=== PATIENT | female | born 1995 | race Caucasian/White ===

== ENCOUNTER → 2017-08-27 | Emergency (ER) | payer OTHER ==
[~2017-08-27] MED LIST: HYDROcodone/APAP 5/325MG 1 TAB TABLET ONE; HYDROcodone/APAP 5/325MG 1 TAB TABLET PO ONE
[2017-08-27 13:58] LABS: BASO # 0.1 x10^3/uL (0.0-0.2); BASO % 1 % (0-3); EOS # 0.1 x10^3/uL (0.0-0.7); EOS % 2 % (0-3); HEMATOCRIT 41.4 % (36.0-47.0); HEMOGLOBIN 13.9 g/dL (12.0-15.5); LYMPH # 1.6 x10^3/uL (1.0-4.8); LYMPH % 31 % (24-48); MEAN CORPUSCULAR HEMOGLOBIN 29 pg (25-35); MEAN CORPUSCULAR HGB CONC 34 g/dL (31-37); MEAN CORPUSCULAR VOLUME 88 fL (79-100); MONO # 0.3 x10^3/uL (0.0-1.1); MONO % 7 % (0-9); NEUT # 3.1 x10^3uL (1.8-7.7); NEUT % 60 % (31-73); PLATELET COUNT 246 x10^3/uL (140-400); RED BLOOD COUNT 4.73 x10^6/uL (3.50-5.40); WHITE BLOOD COUNT 5.1 x10^3/uL (4.0-11.0)
[2017-08-27 14:05] LABS: PREG TEST PT QUAL NEGATIVE (NEG)
[2017-08-27 14:13] LABS: ALBUMIN 3.6 g/dL (3.4-5.0); CALCIUM 8.8 mg/dL (8.5-10.1); CREATININE 0.6 mg/dL (0.6-1.0); DIRECT BILIRUBIN 0.1 mg/dL (0.0-0.2); GFR 127.5; POTASSIUM 3.9 mmol/L (3.5-5.1); TOTAL BILIRUBIN 0.5 mg/dL (0.2-1.0); TOTAL PROTEIN 7.1 g/dL (6.4-8.2)
[2017-08-27 14:33] LABS: BACTERIA,URINE FEW /HPF (0-FEW); BILIRUBIN,URINE NEG (NEG); CLARITY,URINE HAZY; COLOR,URINE YELLOW; GLUCOSE,URINE NEG (NEG); NITRITE,URINE NEG (NEG); RBC,URINE RARE /HPF (0-2); SQUAMOUS EPITHELIAL CELL,UR FEW /LPF; UROBILINOGEN,URINE 0.2 mg/dL (0.2 mg/dL); WBC,URINE RARE /HPF (0-4)
--- NOTE | 2017-08-27 14:47 | PHYS DOC ---
Adult General Chief Complaint Chief Complaint: abdominal pain HPI HPI 21-year-old female otherwise healthy presenting to the emergency department today with abdominal pain. She describes a pain that is been on for about 4 years. She states over the past week or 2 that is been worse. It is a sharp shooting pain that is in the lower abdomen bilaterally. Her last menstrual period was approximately 7 days ago. She denies any fevers or chills. She denies nausea or vomiting. The pain doesn't radiate. It is mild to moderate. She denies any recent exposure to STDs, vaginal bleeding, or changes in vaginal discharge. She denies diarrhea constipation. Surgical history: None Medical history: depression and anxiety Allergies pen Review of systems is negative for chest pain shortness of breath fevers or chills. All other review of systems is negative unless otherwise noted in history of present illness. ED course: 21-year-old female presenting to the emergency department today with abdominal pain. Vital signs unremarkable. Abdominal exam shows soft nondistended abdomen without rebound tenderness or guarding. Otherwise remainder the exam is unremarkable. The patient is nontoxic and well-appearing. Blood work obtained which was unremarkable. Patient was given oral Lortab in the emergency room. Urinalysis unremarkable. Patient not . The patient was then discharged home in stable condition to follow up with their primary care physician over the next 2-3 days. They were to return if their symptoms worsened or if they were concerned for any reason. [id number] discharge instructions and return precautions were given. Patient's questions were answered to their satisfaction. Patient is comfortable with plan. Review of Systems Review of Systems SEE ABOVE. Physical Exam Physical Exam SEE ABOVE Constitutional: Well developed, well nourished, no acute distress, non-toxic appearance. [] HENT: Normocephalic, atraumatic, bilateral external ears normal, oropharynx moist, no oral exudates, nose normal. [] Eyes: PERRLA, EOMI, conjunctiva normal, no discharge. [] Neck: Normal range of motion, no tenderness, supple, no stridor. [] Cardiovascular:Heart rate regular rhythm, no murmur [] Lungs & Thorax: Bilateral breath sounds clear to auscultation [] Abdomen: Bowel sounds normal, soft, no tenderness, no masses, no pulsatile masses. [] Skin: Warm, dry, no erythema, no rash. [] Back: No tenderness, no CVA tenderness. [] Extremities: No tenderness, no cyanosis, no clubbing, ROM intact, no edema. [] Neurologic: Alert and oriented X 3, normal motor function, normal sensory function, no focal deficits noted. [] Psychologic: Affect normal, judgement normal, mood normal. [] Current Patient Data Lab Results Laboratory Tests Test 08/27/17 13:46 08/27/17 14:10 White Blood Count 5.1 x10^3/uL (4.0-11.0) Red Blood Count 4.73 x10^6/uL (3.50-5.40) Hemoglobin 13.9 g/dL (12.0-15.5) Hematocrit 41.4 % (36.0-47.0) Mean Corpuscular Volume 88 fL (79-100) Mean Corpuscular Hemoglobin 29 pg (25-35) Mean Corpuscular Hemoglobin Concent 34 g/dL (31-37) Red Cell Distribution Width 13.0 % (11.5-14.5) Platelet Count 246 x10^3/uL (140-400) Neutrophils (%) (Auto) 60 % (31-73) Lymphocytes (%) (Auto) 31 % (24-48) Monocytes (%) (Auto) 7 % (0-9) Eosinophils (%) (Auto) 2 % (0-3) Basophils (%) (Auto) 1 % (0-3) Neutrophils # (Auto) 3.1 x10^3uL (1.8-7.7) Lymphocytes # (Auto) 1.6 x10^3/uL (1.0-4.8) Monocytes # (Auto) 0.3 x10^3/uL (0.0-1.1) Eosinophils # (Auto) 0.1 x10^3/uL (0.0-0.7) Basophils # (Auto) 0.1 x10^3/uL (0.0-0.2) Sodium Level 137 mmol/L (136-145) Potassium Level 3.9 mmol/L (3.5-5.1) Chloride Level 104 mmol/L (98-107) Carbon Dioxide Level 25 mmol/L (21-32) Anion Gap 8 (6-14) Blood Urea Nitrogen 11 mg/dL (7-20) Creatinine 0.6 mg/dL (0.6-1.0) Estimated GFR (Cockcroft-Gault) 127.5 Glucose Level 82 mg/dL (70-99) Calcium Level 8.8 mg/dL (8.5-10.1) Total Bilirubin 0.5 mg/dL (0.2-1.0) Direct Bilirubin 0.1 mg/dL (0.0-0.2) Aspartate Amino Transferase (AST) 15 U/L (15-37) Alanine Aminotransferase (ALT) 13 U/L (14-59) L Alkaline Phosphatase 81 U/L (46-116) Total Protein 7.1 g/dL (6.4-8.2) Albumin 3.6 g/dL (3.4-5.0) Lipase 141 U/L (73-393) Serum Test, Qualitative Negative (NEG) Urine Collection Type Unknown Urine Color Yellow Urine Clarity Hazy Urine pH 5.0 Urine Specific [place] 1.025 Urine Protein Neg (NEG-TRACE) Urine Glucose (UA) Neg mg/dL (NEG) Urine Ketones (Stick) Neg mg/dL (NEG) Urine Blood Neg (NEG) Urine Nitrite Neg (NEG) Urine Bilirubin Neg (NEG) Urine Urobilinogen Dipstick 0.2 mg/dL (0.2 mg/dL) Urine Leukocyte Esterase Neg (NEG) Urine RBC Rare /HPF (0-2) Urine WBC Rare /HPF (0-4) Urine Squamous Epithelial Cells Few /LPF Urine Bacteria Few /HPF (0-FEW) Urine Mucus Slight /LPF EKG EKG [] Radiology/Procedures Radiology/Procedures [] Course & Med Decision Making Course & Med Decision Making Pertinent Labs and Imaging studies reviewed. (See chart for details) [] Dragon Disclaimer Dragon Disclaimer This electronic medical record was generated, in whole or in part, using a voice recognition dictation system. Departure Departure: Impression: Primary Impression: Abdominal pain Disposition: 01 HOME, SELF-CARE Condition: STABLE Referrals: NIC PEARSON MD Patient Instructions: Abdominal Pain, Women Additional Instructions: Thank you for allowing us to participate in your care today. Followup with your primary care physician in 3 days if your symptoms do not improve. Call your Primary Doctor tomorrow and inform them of your visit today. If you do not have a primary care provider you can ask for a list of our primary care providers. Return to the emergency department you have any new or concerning findings. This should be evaluated by the primary care physician and any necessary consulting services for continued management within a few days after discharge. Return to emergency room if you have any new or concerning symptoms including but not limited to fever, chills, nausea, vomiting, intractable pain, any new rashes, chest pain, shortness of air, uncontrolled bleeding, difficulty breathing, and/or vision loss. ADRYAN GARRISON MD Aug 27, 2017 14:47
[2017-08-27 14:59] VITALS: BP 98/57
== END | disposition home or self-care (01) ==
LOC: ER 13:16
DX: R10.9 Unspecified abdominal pain (principal); Z88.0 Allergy status to penicillin
CPT/HCPCS: 36415; 80048; 80076; 81001; 83690; 84703; 85025; 99284

== ENCOUNTER → 2017-09-02 | Outpatient (CLI) | payer OTHER ==
[2017-08-27 14:59] VITALS: BP 98/57
[~2017-09-02] MED LIST changes: -HYDROcodone/APAP 5/325MG 1 TAB TABLET ONE; -HYDROcodone/APAP 5/325MG 1 TAB TABLET PO ONE; +IOHEXOL 240 MG/ML 50ML VIAL. ONE; +IOHEXOL 300 MG/ML 75 ML VIAL. IV ONE
--- NOTE | 2017-09-02 11:44 | RAD ---
CT ABD PELV W/ORAL IV CONTRAST Indication: UPPER QUAD PAIN FOR A YEAR INCREASING OVER THE LAST MONTH, N/V
OMNI 300 75CC OMNI 240 30CC Exposure: One or more of the following individualized dose reduction techniques were utilized for this examination: 1. Automated exposure control 2. Adjustment of the mA and/or kV according to patient size 3. Use of iterative reconstruction technique. Comparison: None are available. Contrast: Intravenous and oral contrast The barely included lung bases are clear. No evidence of pneumoperitoneum. The upper liver and upper spleen are not included on the exam. Visualized liver and spleen appear unremarkable. Pancreas unremarkable. No adrenal mass. Kidneys unremarkable. No calcified gallstone. No aortic aneurysm. No significant lymph node enlargement. The upper stomach is not included on the exam. Diffuse mild distention of small bowel loops, likely an ileus. There does not appear to be a bowel obstruction. Contrast has not reached the colon at the time of scanning. Mild retained stool throughout the colon. No evidence of acute colitis. At least the proximal aspect of the appendix is visualized and appears unremarkable. No ascites. No evidence of a pelvic mass. Urinary bladder is unremarkable but not opacified. No evidence of destructive bone lesion. Mild left convexity lumbar scoliosis. IMPRESSION: 1. Mild distention of small bowel, likely an ileus. 2. Mild retained stool in the colon, correlate for constipation. 3. Otherwise no acute findings in the abdomen or pelvis. 4. Note that the upper most abdominal contents not included in the area of coverage, detailed above. Electronically signed by: Frank Hidalgo MD (09/02/2017 11:41 AM) [id number]
== END | disposition home or self-care (01) ==
LOC: CT 08:17
PROVIDERS: ATTEND Family Medicine
DX: R10.31 Right lower quadrant pain (principal); R11.2 Nausea with vomiting, unspecified
CPT/HCPCS: 74177; Q9966

== ENCOUNTER → 2017-10-10 | Outpatient (CLI) | payer OTHER ==
[2017-08-27 14:59] VITALS: BP 98/57
[~2017-10-10] MED LIST changes: +BARIUM SULFATE 60% 355 ML SUSP PO ONE; -IOHEXOL 240 MG/ML 50ML VIAL. ONE; -IOHEXOL 300 MG/ML 75 ML VIAL. IV ONE
--- NOTE | 2017-10-10 17:41 | RAD ---
Small bowel follow-through study 10/10/2017 CLINICAL HISTORY: Low abdominal pain with constipation. TECHNIQUE: A small bowel follow-through study was performed under radiographic control. No fluoroscopy was performed. 7 radiographs were obtained. FINDINGS: Comparison is made to the patient's CT scan of the abdomen and pelvis dated 09/10/2017. 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 This demonstrates a nonobstructive bowel gas pattern. A moderate amount of stool is seen throughout the colon. The lung bases are clear. No radiopaque calculus is seen. The osseous structures are grossly intact. The mucosal pattern of the duodenum, jejunum, ileum and terminal ileum is within normal limits. The cecum is in its normal location within the right lower quadrant abdomen. The small bowel transit time is within normal limits. No extrinsic mass effect upon the small intestine is seen. IMPRESSION: Negative study. Electronically signed by: Smith Durant MD (10/10/2017 5:38 PM) [facility]
== END | disposition home or self-care (01) ==
LOC: RAD 08:32
PROVIDERS: ATTEND Internal Medicine Gastroenterology
DX: K59.00 Constipation, unspecified (principal); R10.32 Left lower quadrant pain
CPT/HCPCS: 74250

== ENCOUNTER 2020-12-03 15:52 | Emergency (ER) | payer OTHER ==
[~2020-12-03] VITALS: Ht 167.6 cm; Wt 67.2 kg
[2020-12-03 16:07] VITALS: BP 136/72
[2020-12-03 16:46] LABS: MONONUCLEOSIS PATIENT NEGATIVE (NEGATIVE)
[2020-12-03] MEDS ORDERED: PRED-220 PO (17:42)
--- NOTE | 2020-12-03 17:43 | PHYS DOC ---
Past History Past Medical History: Anxiety, Depression, Other Additional Past Medical Histor: Strep Past Surgical History: No Surgical History Alcohol Use: None Drug Use: None General Adult EDM: Chief Complaint: SORE THROAT HPI: HPI: 25-year-old female presents with sore throat. Patient was diagnosed with strep and an ear infection by her PCP 3 days ago. She was placed on azithromycin. She has taken 3 days so far. She feels like her symptoms are getting worse. She is currently breast-feeding. She had her COVID-19 vaccinations. She denies fever or chills. She has no other specific complaints. Review of Systems: Review of Systems: Constitutional: Denies fever or chills Eyes: Denies change in visual acuity HENT: sore throat Respiratory: Denies cough or shortness of breath Cardiovascular: Denies chest pain or edema GI: Denies abdominal pain, nausea, vomiting, bloody stools or diarrhea : Denies dysuria Musculoskeletal: Denies back pain or joint pain Integument: Denies rash Neurologic: Denies headache, focal weakness or sensory changes Endocrine: Denies polyuria or polydipsia Lymphatic: Denies swollen glands Psychiatric: Denies depression or anxiety Allergies: Allergies: Allergies Coded Allergies Type Severity Reaction Last Updated Verified Penicillins Allergy Unknown 08/27/17 Yes Physical Exam: PE: Constitutional: Well developed, well nourished, no acute distress, non-toxic appearance. [] HENT: Normocephalic, atraumatic, bilateral external ears normal, oropharynx erythematous without tonsillar exudates, nose normal. Bilateral tympanic membranes normal. [] Eyes: PERRLA, EOMI, conjunctiva normal, no discharge. [] Neck: Normal range of motion, no tenderness, supple, no stridor. [] Cardiovascular: Heart rate regular rhythm, no murmur [] Lungs & Thorax: Bilateral breath sounds clear to auscultation [] Abdomen: Bowel sounds normal, soft, no tenderness, no masses, no pulsatile masses. [] Skin: Warm, dry, no erythema, no rash. [] Back: No tenderness, no CVA tenderness. [] Extremities: No tenderness, no cyanosis, no clubbing, ROM intact, no edema. [] Neurologic: Alert and oriented X 3, normal motor function, normal sensory function, no focal deficits noted. [] Psychologic: Affect normal, judgement normal, mood normal. [] Current Patient Data: Labs: Laboratory Tests Test 12/03/20 16:19 Heterophil Agglutinins Negative (NEGATIVE) Vital Signs: Vital Signs Date Time Temp Pulse Resp B/P (MAP) Pulse Ox O2 Delivery O2 Flow Rate FiO2 12/03/20 16:07 98.8 90 16 136/72 (93) 98 Room Air EKG: EKG: [] Radiology/Procedures: Radiology/Procedures: [] Heart Score: C/O Chest Pain: N/A Risk Factors: Risk Factors: DM, Current or recent (<one month) smoker, HTN, HLP, family history of CAD, obesity. Risk Scores: Score 0 - 3: 2.5% MACE over next 6 weeks - Discharge Home Score 4 - 6: 20.3% MACE over next 6 weeks - Admit for Clinical Observation Score 7 - 10: 72.7% MACE over next 6 weeks - Early Invasive Strategies Course & Med Decision Making: Course & Med Decision Making Pertinent Labs and Imaging studies reviewed. (See chart for details) Azithromycin should cover strep and the common causes of ear infection. I do not see definitive signs of a bacterial infection. I have ordered a mono screen and it is negative. I will treat the patient with steroids for 3 days and give her the first dose in the ED. She is stable for discharge at this time. [] Maryon Disclaimer: Dragcristy Disclaimer: This electronic medical record was generated, in whole or in part, using a voice recognition dictation system. Departure Departure: Impression: Primary Impression: Sore throat Disposition: HOME / SELF CARE / HOMELESS Condition: STABLE Referrals: NIC PEARSON MD (PCP) Patient Instructions: Sore Throat, [id number] Scripts Prednisone (PREDNISONE) 10 Mg Tablet 40 MG PO DAILY for sore throat for 2 Days, #8 TAB Prov: PAUL ECHAVARRIA DO 12/03/20 PAUL ECHAVARRIA DO Dec 03, 2020 17:43
[2020-12-03] MEDS ORDERED: predniSONE 20 MG TABLET PO ONE (18:00)
== END 2020-12-03 17:54 | disposition home or self-care (01) ==
LOC: ER 15:52
DX: J02.9 Acute pharyngitis, unspecified (principal); Z88.0 Allergy status to penicillin
CPT/HCPCS: 86308; 99283; J7512

== ENCOUNTER 2021-02-05 11:00 | Emergency (ER) | payer OTHER ==
[~2021-02-05] VITALS: Ht 170.2 cm; Wt 67.4 kg
[~2021-02-05 11:00] MED LIST changes: -BARIUM SULFATE 60% 355 ML SUSP PO ONE; +PRED-220 PO
--- NOTE | 2021-02-05 11:17 | PHYS DOC ---
Past History Past Medical History: Anxiety, Depression, Other Additional Past Medical Histor: Strep (ROEL VALDOVINOS APRN) Past Surgical History: No Surgical History (ROEL VALDOVINOS APRN) Alcohol Use: None Drug Use: None (ROEL VALDOVINOS APRN) General Adult HPI: HPI: Patient is a 25-year-old female being seen in the ER for shortness of breath with exertion x2 months. Patient's only medical history is bipolar disorder. Patient denies cough, fever, chest pain currently, injury, or control use, prolonged sitting. Patient is vaccinated for COVID-19. (ROEL VALDOVINOS APRN) Review of Systems: Review of Systems: 14 body systems of the review of systems have been reviewed. See HPI for pertinent positive and negative responses, otherwise all other systems are negative, nonpertinent or noncontributory (ROEL VALDOVINOS APRN) Allergies: Allergies: Allergies Coded Allergies Type Severity Reaction Last Updated Verified Penicillins Allergy Unknown 08/27/17 Yes (ROEL VALDOVINOS APRN) Physical Exam: PE: Constitutional: Well developed, well nourished, no acute distress, non-toxic appearance. [] HENT: Normocephalic, atraumatic, bilateral external ears normal, oropharynx moist, no oral exudates, nose normal. [] Eyes: PERRLA, EOMI, conjunctiva normal, no discharge. [] Neck: Normal range of motion, no stridor Cardiovascular:Heart rate tachycardic rhythm, no murmur [] Lungs & Thorax: Bilateral breath sounds clear to auscultation [] Abdomen: Bowel sounds normal, soft, no tenderness, no masses, no pulsatile masses. [] Skin: Warm, dry, no erythema, no rash. [] Back: Normal range of motion Extremities: No tenderness, no cyanosis, no clubbing, ROM intact, no edema. [] Neurologic: Alert and oriented X 3, normal motor function, normal sensory function, no focal deficits noted. [] Psychologic: Affect normal, judgement normal, mood normal. [] (ROEL VALDOVINOS APRN) Current Patient Data: Labs: Laboratory Tests Test 02/05/21 11:19 02/05/21 11:25 02/05/21 11:40 02/05/21 11:46 White Blood Count 5.3 x10^3/uL Red Blood Count 4.53 x10^6/uL Hemoglobin 13.4 g/dL Hematocrit 40.1 % Mean Corpuscular Volume 88 fL Mean Corpuscular Hemoglobin 30 pg Mean Corpuscular Hemoglobin Concent 33 g/dL Red Cell Distribution Width 13.8 % Platelet Count 254 x10^3/uL Neutrophils (%) (Auto) 55 % Lymphocytes (%) (Auto) 35 % Monocytes (%) (Auto) 7 % Eosinophils (%) (Auto) 2 % Basophils (%) (Auto) 1 % Neutrophils # (Auto) 2.9 x10^3uL Lymphocytes # (Auto) 1.8 x10^3/uL Monocytes # (Auto) 0.4 x10^3/uL Eosinophils # (Auto) 0.1 x10^3/uL Basophils # (Auto) 0.0 x10^3/uL Sodium Level 141 mmol/L Potassium Level 4.3 mmol/L Chloride Level 105 mmol/L Carbon Dioxide Level 29 mmol/L Anion Gap 7 Blood Urea Nitrogen 12 mg/dL Creatinine 0.7 mg/dL Estimated GFR (Cockcroft-Gault) 102.8 BUN/Creatinine Ratio 17 Glucose Level 108 mg/dL Calcium Level 8.4 mg/dL Total Bilirubin 0.3 mg/dL Aspartate Amino Transf (AST/SGOT) 18 U/L Alanine Aminotransferase (ALT/SGPT) 20 U/L Alkaline Phosphatase 138 U/L Total Protein 7.5 g/dL Albumin 4.0 g/dL Albumin/Globulin Ratio 1.1 Urine Collection Type Unknown Urine Color Yellow Urine Clarity Clear Urine pH 6.0 Urine Specific [place] 1.025 Urine Protein Neg Urine Glucose (UA) Neg mg/dL Urine Ketones (Stick) Neg mg/dL Urine Blood Neg Urine Nitrite Neg Urine Bilirubin Neg Urine Urobilinogen Dipstick 0.2 mg/dL Urine Leukocyte Esterase Neg Urine RBC Occ /HPF Urine WBC 1-4 /HPF Urine Squamous Epithelial Cells Mod /LPF Urine Bacteria Few /HPF D-Dimer (Emily) < 0.19 mg/L Bedside Urine HCG, Qualitative hcg negative (ROEL VALDOVINOS APRN) EKG: EKG: [] (ROEL VALDOVINOS APRN) Radiology/Procedures: Radiology/Procedures: PROCEDURE: CHEST AP ONLY EXAM: Chest, single view. HISTORY: Shortness of breath. COMPARISON: None. FINDINGS: A frontal view of the chest is obtained. There is no infiltrate, pleural effusion or pneumothorax. The heart is normal in size. IMPRESSION: No acute pulmonary finding. Electronically signed by: Zita Jack MD (02/05/2021 11:44 AM) [id number] DICTATED AND SIGNED BY: ZITA JACK MD DATE: 02/05/21 1143 CC: ROEL VALDOVINOS APRN; RAQUEL BROWNING DO, MPH ~MTH0 0 [] (ROEL VALDOVINOS APRN) Heart Score: C/O Chest Pain: No Risk Factors: Risk Factors: DM, Current or recent (<one month) smoker, HTN, HLP, family history of CAD, obesity. Risk Scores: Score 0 - 3: 2.5% MACE over next 6 weeks - Discharge Home Score 4 - 6: 20.3% MACE over next 6 weeks - Admit for Clinical Observation Score 7 - 10: 72.7% MACE over next 6 weeks - Early Invasive Strategies (ROEL VALDOVINOS APRN) Course & Med Decision Making: Course & Med Decision Making Pertinent Labs and Imaging studies reviewed. (See chart for details) Patient is a 25-year-old female being seen in the ER for shortness of breath for 2 months. Lung sounds are clear and patient is nonlabored and in no acute distress. Patient is noted to be tachycardic. She is afebrile. Lab work performed to rule out a PE. Patient's 4PEPS is -2. PERC score 1. Cup in the ER is unremarkable. Patient does have history of asthma as a child but reports that she has not had a flare in adulthood. Patient discharged home with a ProAir inhaler and to follow-up with her primary care provider. I discussed with patient all findings and diagnostic testing as well as the need to follow-up with PCP for further evaluation and treatment or return to the ER if any new or worsening symptoms. Strict return precautions were also discussed at length. Patient voiced understanding and agreement with the plan. Patient is hemodynamically stable at the time of disposition. (ROEL VALDOVINOS APRN) Course & Med Decision Making I was the Attending physician on the above date of service of this patient. This patient was evaluated, examined, treated, and dispositioned from the emergency department by the mid-level practitioner. Although I was working at the time , no assistance was requested. Electronically signed, Caryl Newell DO (CARYL NEWELL DO) Shirley Disclaimer: Shirley Disclaimer: This electronic medical record was generated, in whole or in part, using a voice recognition dictation system. (ROEL VALDOVINOS APRN) Departure Departure: Impression: Primary Impression: Shortness of breath Disposition: HOME / SELF CARE / HOMELESS Condition: GOOD Referrals: RAQUEL BROWNING DO, MPH (PCP) Patient Instructions: Shortness of Breath Additional Instructions: You were seen in the ER for shortness of breath worse with exertion x2 months. Your work-up in the ER was unremarkable. Your chest x-ray is negative for any acute findings. You do have a history of childhood asthma but had not been diag nosed with adult asthma. You may need pulmonary function testing. You should follow-up with your primary care provider tomorrow regarding your ER visit. You are being discharged home with an albuterol inhaler. You can take 2 puffs every 6 hours as needed for shortness of breath. If you develop worsening of your shortness of breath, chest pain, high fevers refractory to treatment, difficulty maintaining secretions please return to the ER. EMERGENCY DEPARTMENT GENERAL DISCHARGE INSTRUCTIONS Thank you for coming to [facility] (ED) today and trusting us with you care. We trust that you had a positivie experience in our Emergency Department. If you wish to speak to the department management, you may call the director at [phone]. YOUR FOLLOW UP INSTRUCTIONS ARE FOLLOWS: 1. Do you have a private Doctor? If you do not have a private doctor, please ask for a resource list of physicians or clinics that may be able to assist you with follow up care. 2. The Emergency Physician has interpreted your x-rays. The X-Ray specialist will also review them. If there is a change in the findings, you will be notified in 48 hours when at all possible. 3. A lab test or culture has been done, your results will be reviewed and you will be notified if you need a change in treatment. ADDITIONAL INSTRUCTIONS AND INFORMATION: 1. Your care today has been supervised by a physician who is specially trained in emergency care. Many problems require more than one evaluation for a complete diagnosis and treatment. We recommend that you schedule your follow up appointment as recommended to ensure complete treatment of you illness or injury. If you are unable to obtain follow up care and continue to have a problem, or if your condition worsens, we recommend that you return to the ED. 2. We are not able to safely determine your condition over the phone nor are we able to give sound medical advice over the phone. For these safety reasons, if you call for medical advice we will ask you to come to the ED for further evaluation. 3. If you have any questions regarding these discharge instructions please call the ED at [phone]. SAFETY INFORMATION: In the interest of safety, wellness, and injury prevention; we encourage you to wear your sealbelt, if you smoke; quite smoking, and we encourage family to use a protective helmet for bicycling and other sporting events that present an increased risk for head injury. IF YOUR SYMPTOMS WORSEN OR NEW SYMPTOMS DEVELOP, OR YOU HAVE CONCERNS ABOUT YOUR CONDITION; OR IF YOUR CONDITION WORSENS WHILE YOU ARE WAITING FOR YOUR FOLLOW UP APPOINTMENT; EITHER CONTACT YOUR PRIMARY CARE DOCTOR, THE PHYSICIAN WHOSE NAME AND NUMBER YOU WERE GIVEN, OR RETURN TO THE ED IMMEDIATELY. Scripts Albuterol Sulfate (PROAIR HFA INHALER) 8.5 Gm Hfa.aer.ad 2 PUFF IH PRN Q4-6HRS PRN for wheezing for 21 Days, #1 INHALER 0 Refills as needed for wheezing Prov: ROEL VALDOVINOS APRN 02/05/21 ROEL VALDOVINOS APRN Feb 05, 2021 11:17 CARYL NEWELL DO Feb 06, 2021 08:03
[2021-02-05 11:39] LABS: BASO % 1 % (0-3); EOS # 0.1 x10^3/uL (0.0-0.7); EOS % 2 % (0-3); HEMATOCRIT 40.1 % (36.0-47.0); HEMOGLOBIN 13.4 g/dL (12.0-15.5); LYMPH # 1.8 x10^3/uL (1.0-4.8); LYMPH % 35 % (24-48); MEAN CORPUSCULAR HEMOGLOBIN 30 pg (25-35); MEAN CORPUSCULAR HGB CONC 33 g/dL (31-37); MEAN CORPUSCULAR VOLUME 88 fL (79-100); MONO # 0.4 x10^3/uL (0.0-1.1); MONO % 7 % (0-9); NEUT # 2.9 x10^3uL (1.8-7.7); NEUT % 55 % (31-73); PLATELET COUNT 254 x10^3/uL (140-400); RED BLOOD COUNT 4.53 x10^6/uL (3.50-5.40); RED CELL DISTRIBUTION WIDTH 13.8 % (11.5-14.5); WHITE BLOOD COUNT 5.3 x10^3/uL (4.0-11.0)
--- NOTE | 2021-02-05 11:46 | RAD ---
EXAM: Chest, single view. HISTORY: Shortness of breath. COMPARISON: None. FINDINGS: A frontal view of the chest is obtained. There is no infiltrate, pleural effusion or pneumo thorax. The heart is normal in size. IMPRESSION: No acute pulmonary finding. Electronically signed by: Zita Gant MD (02/05/2021 11:44 AM) [id number]
[2021-02-05 11:48] LABS: CALCIUM 8.4 mg/dL (8.5-10.1); CREATININE 0.7 mg/dL (0.6-1.0); GFR 102.8; POTASSIUM 4.3 mmol/L (3.5-5.1)
[2021-02-05 11:54] LABS: ALBUMIN/GLOBULIN RATIO 1.1 (1.0-1.7); TOTAL BILIRUBIN 0.3 mg/dL (0.2-1.0); TOTAL PROTEIN 7.5 g/dL (6.4-8.2)
[2021-02-05 11:59] LABS: BACTERIA,URINE FEW /HPF (0-FEW); BILIRUBIN,URINE NEG (NEG); CLARITY,URINE CLEAR; COLOR,URINE YELLOW; GLUCOSE,URINE NEG (NEG); NITRITE,URINE NEG (NEG); RBC,URINE OCC /HPF (0-2); SQUAMOUS EPITHELIAL CELL,UR MOD /LPF; UROBILINOGEN,URINE 0.2 mg/dL (0.2 mg/dL)
[2021-02-05] MEDS ORDERED: ALBU2.5V8 IH (12:46)
[2021-02-05 13:11] VITALS: BP 102/63
== END 2021-02-05 13:10 | disposition home or self-care (01) ==
LOC: ER 11:00
DX: R06.02 Shortness of breath (principal); Z88.0 Allergy status to penicillin
CPT/HCPCS: 36415; 71045; 80053; 81001; 81025; 85025; 85379; 99284-25